=== PATIENT | female | born 1995 | race Caucasian/White ===

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

== ENCOUNTER 2018-11-27 09:09 | Emergency (ER) | payer SELFPAY ==
[2018-11-27 09:13] VITALS: BP 100/61; PULSE 84; TEMP 98.8; BMI 24.7
[2018-11-27] MEDS ORDERED: SODIUM CHLORIDE 1,000 ML IV STA (09:22)
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
[2018-11-27 09:49] LABS: BASO % 0.4 % (0-2.0); EOS % 1.2 % (0-4.5); HEMATOCRIT 40.3 % (32.4-45.2); HEMOGLOBIN 13.2 GM/dL (10.7-15.3); LYMPH % 19.2 % (8-40); MCH 28.8 pg (25.7-33.7); MCHC 32.7 g/dl (32.0-36.0); MEAN PLT VOLUME 8.8 fl (7.5-11.1); MONO % 7.6 % (3.8-10.2); NEUT % 71.6 % (42.8-82.8); PLATELET COUNT 304 K/MM3 (134-434); RBC 4.58 M/mm3 (3.60-5.2); RDW 15.6 % (11.6-15.6); WHITE BLOOD COUNT 7.7 K/mm3 (4.0-10.0)
[2018-11-27 09:55] LABS: HCG,QUALITATIVE URINE Positive
--- NOTE | 2018-11-27 09:59 | PDOC ---
*Physical Exam - Vital Signs Last Vital Signs Temp Pulse Resp BP Pulse Ox 98.8 F 84 18 100/61 98 11/27/18 09:09 11/27/18 09:09 11/27/18 09:09 11/27/18 09:09 11/27/18 09:09 ED Treatment Course - LABORATORY CBC & Chemistry Diagram: 11/27/18 09:35 11/27/18 09:35 - ADDITIONAL ORDERS Additional order review: Laboratory Results 11/27/18 09:35 Urine HCG, Qual Positive 11/27/18 09:35 RBC 4.58 MCV 88.0 MCHC 32.7 RDW 15.6 D MPV 8.8 Neutrophils % 71.6 Lymphocytes % 19.2 Monocytes % 7.6 Eosinophils % 1.2 Basophils % 0.4 Medical Decision Making - Medical Decision Making 11/27/18 09:59 Pt seen by Midlevel Provider under my direct supervision 23 yo F presenting with nausea and vomiting and spotting Pt s/p removal of Depo in April 2018 Menses resumed in July LMP in September Pt has noted vomiting and spotting over the past few days DD: , gastroenteritis, Ancillary studies reviewed I agree with plan as outlined by Midlevel Provider 11/27/18 10:07 Laboratory Tests 11/27/18 11/27/18 09:35 09:35 WBC 7.7 Hgb 13.2 Hct 40.3 Plt Count 304 Urine HCG, Qual Positive 11/27/18 11:09 Laboratory Tests 11/27/18 09:35 Beta HCG, Quant 29537.4 11/27/18 11:13 US- 6 weeks, HR 176 bpm, ovaries with flow bilaterally 11/27/18 12:12 Laboratory Tests 11/27/18 10:56 Blood Type A POSITIVE 11/27/18 12:12 Follow up with usability specialist Clinical impression: threatened AB, initial presentation Abdominal pain in , initial presentation *DC/Admit/Observation/Transfer Diagnosis at time of Disposition: Threatened - Discharge Dispostion Disposition: HOME Condition at time of disposition: Stable - Referrals Referrals: Natalie Cantor MD [Staff Physician] - ON STAFF,NOT [Primary Care Provider] - - Patient Instructions Printed Discharge Instructions: DI for Threatened Additional Instructions: Thank you for choosing [facility]. It was a pleasure taking care of you. You were found to be 6 weeks here Recommend pelvic rest (avoid sexual intercourse as well) Follow-up with RADIOLOGY ORDERLY in 2 days for continued management of your Return to the Emergency Department if your symptoms worsen or persist, you have severe abdominal pain, vomiting, heavy vaginal bleeding or other concerning symptoms. - Post Discharge Activity
[2018-11-27 10:11] LABS: HYALINE CASTS 11 /lpf (0-8); URINE APPEARANCE CLEAR; URINE BILIRUBIN NEGATIVE (NEGATIVE); URINE COLOR YELLOW; URINE GLUCOSE (UA) NEGATIVE (NEGATIVE); URINE KETONE TRACE (NEGATIVE); URINE LEUK ESTERASE TRACE (NEGATIVE); URINE NITRITE NEGATIVE (NEGATIVE); URINE PROTEIN NEGATIVE (NEGATIVE); URINE RBC 1 /hpf (0-4); URINE UROBILINOGEN 0.2 mg/dL (0.2-1.0); URINE WBC 7 /hpf (0-5)
[2018-11-27 10:37] LABS: ALBUMIN 3.9 g/dl (3.4-5.0); BILIRUBIN,TOTAL 0.5 mg/dL (0.2-1); BLOOD UREA NITROGEN 5.9 mg/dL (7-18); CALCIUM 8.7 mg/dL (8.5-10.1); CREATININE 0.5 mg/dL (0.55-1.3); POTASSIUM 5.1 mmol/L (3.5-5.1); TOT PROT 7.7 g/dl (6.4-8.2)
== END 2018-11-27 12:17 | disposition home or self-care (01) ==
LOC: JER 09:09
PROC: 3E0337Z Introduction of Electrolytic and Water Balance Substance into Peripheral Vein, Percutaneous Approach (ICD-10-PCS; principal; 2018-11-27)
DX: O26.891 Other specified pregnancy related conditions, first trimester (principal); O20.0 Threatened abortion; Z3A.01 Less than 8 weeks gestation of pregnancy
CPT/HCPCS: 36415; 76817-TC; 80053; 81003; 84702; 84703; 85025; 86850; 86900; 86901; 99283-25; J7030

== ENCOUNTER 2019-08-09 15:04 | Emergency (ER) | payer OTHER ==
[2019-08-09 15:19] VITALS: BP 107/81; PULSE 88; TEMP 98.3; BMI 27.4
--- NOTE | 2019-08-09 15:39 | PDOC ---
Rapid Medical Evaluation Chief Complaint: Shortness of Breath Time Seen by Provider: 08/09/19 15:36 Medical Evaluation: Allergies Allergy/AdvReac Type Severity Reaction Status Date / Time No Known Drug Allergies Allergy Verified 11/27/18 09:10 MUSHROOMS Allergy Swelling Uncoded 11/27/18 09:10 Vital Signs Temp Pulse Resp BP Pulse Ox 98.3 F 88 19 107/81 100 08/09/19 15:15 08/09/19 15:15 08/09/19 15:15 08/09/19 15:15 08/09/19 15:15 08/09/19 15:36 Pt c/o: increasing sob, recent dx of anemia, started iron last week but no improvement, heavy vag bleeding Pt on brief exam: vss, conjunctiva mildly pale Pt ordered for: none Pt to proceed to the ED 08/09/19 15:37 Discharge Disposition - Diagnosis Fatigue - Referrals - Patient Instructions - Post Discharge Activity
--- NOTE | 2019-08-09 16:34 | PDOC ---
History of Present Illness - General History Source: Patient Exam Limitations: Clinical Condition - History of Present Illness Initial Comments: 08/09/19 16:32 Patient with no significant past medical history present with complaint of 2 weeks history of midsternal chest pain, shortness of breath with deep breathing and intermittent chest tightness. Patient reported going to urgent care a week ago for symptoms and blood work done including CBC shows mild anemia but thyroid lab and chemistry was normal. Patient reported history of heavy menstrual pe riod soaking 4 pads a day with last menstrual period lasting a week now. Patient reported last menstrual period last month of the and started bleeding again a week ago which is now still having menstrual period. Denies nausea, vomiting, dizziness, fever, chills, numbness or tingling sensation. Denies any other symptoms. Patient did not take anything for symptoms Is this a multiple visit Asthma Patient?: No Timing/Duration: other (2 weeks) <Kelvin Rutherford - Last Filed: 08/09/19 18:06> <Neeta De La Paz - Last Filed: 08/14/19 05:18> - General Chief Complaint: Shortness of Breath Stated Complaint: CHEST TIGHTNESS/SOB Time Seen by Provider: 08/09/19 15:36 Past History - Past Medical History Asthma: No COPD: No Diabetes: No HTN: No - Reproductive History (#): 1 Para: 0 - Immunization History Immunization Up to Date: Yes - Psycho Social/Smoking Cessation Hx Smoking Status: No Smoking History: Never smoked Have you smoked in the past 12 months: No Number of Cigarettes Smoked Daily: 0 Hx Alcohol Use: No Drug/Substance Use Hx: No Substance Use Type: None <Kelvin Rutherford - Last Filed: 08/09/19 18:06> <Neeta De La Paz - Last Filed: 08/14/19 05:18> - Past Medical History Allergies/Adverse Reactions: Allergies Allergy/AdvReac Type Severity Reaction Status Date / Time No Known Drug Allergies Allergy Verified 08/11/19 22:37 MUSHROOMS Allergy Swelling Uncoded 08/11/19 22:37 Home Medications: Ambulatory Orders Albuterol Sulfate Inhaler - [Ventolin Hfa Inhaler -] 2 inh PO Q6H PRN #1 inh 08/09/19 Naproxen 500 mg PO BID PRN #20 tablet 08/09/19 Review of Systems - Review of Systems Able to Perform ROS?: Yes Is the patient limited [place] proficient: No Constitutional: No: Chills, Fever, Malaise HEENTM: No: Symptoms Reported, See HPI, Eye Pain, Blurred Vision, Tearing, Recent change in vision, Double Vision, Cataracts, Ear Pain, Ocular Prothesis, Ear Discharge, Nose Pain, Nose Congestion, Tinnitus, Nose Bleeding, Hearing Loss, Throat Pain, Throat Swelling, Mouth Pain, Dental Problems, Difficulty Swal lowing, Mouth Swelling, Other Respiratory: Yes: Symptoms reported, See HPI, Shortness of Breath. No: Cough, Orthopnea, SOB with Exertion, SOB at Rest, Stridor, Wheezing, Productive cough, Hemoptysis, Other Cardiac (ROS): Yes: Symptoms Reported, See HPI, Chest Tightness (mid-sternum chest discomfort). No: Chest Pain, Edema, Irregular Heart Rate, L ightheadedness, Palpitations, Syncope, Other ABD/GI: No: Symptoms Reported, See HPI, Constipated, Diarrhea, Nausea, Poor Appetite, Poor Fluid Intake, Vomiting, Indigestion, Abdominal cramping : No: Symptoms Reported, Frequency, Hematuria All Other Systems: Reviewed and Negative <Kelvin Rutherford - Last Filed: 08/09/19 18:06> *Physical Exam - Vital Signs Last Vital Signs Temp Pulse Resp BP Pulse Ox 98.3 F 88 19 107/81 100 08/09/19 15:15 08/09/19 15:15 08/09/19 15:15 08/09/19 15:15 08/09/19 15:15 - Physical Exam 08/09/19 16:40 GENERAL: Well developed, well nourished. Awake and alert. No acute distress. HEENT: Normocephalic, atraumatic. PERRLA, EOMI. No conjunctival pallor. Sclera are non-icteric. Moist mucous membranes. Oropharynx is clear. NECK: Supple. Full ROM. CARDIOVASCULAR: Mild reproducible midsternal chest discomfort. Regular rate and rhythm. No murmurs, rubs, or gallops. Distal pulses are 2+ and symmetric. PULMONARY: No evidence of respiratory distress. Lungs clear to auscultation bilaterally. No wheezing, rales or rhonchi. ABDOMINAL: Soft. Non-tender. Non-distended. No rebound or guarding. No organomegaly. Normoactive bowel sounds. MUSCULOSKELETAL Normal range of motion at all joints. SKIN: Warm and dry. Normal capillary refill. No rashes. No cyanosis. NEUROLOGICAL: Alert, awake, appropriate. Gait is normal without ataxia. PSYCHIATRIC: Cooperative. Good eye contact. Appropriate mood General Appearance: Yes: Nourished, Appropriately Dressed. No: Apparent Distress <Kelvin Rutherford - Last Filed: 08/09/19 18:06> - Vital Signs Last Vital Signs Temp Pulse Resp BP Pulse Ox 98.3 F 88 19 107/81 100 08/09/19 15:15 08/09/19 15:15 08/09/19 15:15 08/09/19 15:15 08/09/19 15:15 <Neeta De La Paz - Last Filed: 08/14/19 05:18> ED Treatment Course - LABORATORY CBC & Chemistry Diagram: 08/09/19 16:38 08/09/19 16:38 - RADIOLOGY Radiology Studies Ordered: Category Date Time Status CHEST PA & LAT [RAD] Stat Radiology 08/09/19 16:26 Ordered <Kelvin Rutherford - Last Filed: 08/09/19 18:06> - LABORATORY CBC & Chemistry Diagram: 08/09/19 16:38 08/09/19 16:38 - ADDITIONAL ORDERS Additional order review: 08/09/19 16:38 RBC 4.62 MCV 81.8 MCHC 31.9 L RDW 18.2 H MPV 9.1 Neutrophils % 65.4 Lymphocytes % 22.4 Monocytes % 10.2 Eosinophils % 1.2 Basophils % 0.8 - Medications Given in the ED: ED Medications Discontinued Medications Generic Name Dose Route Start Last Admin Trade Name Freq PRN Reason Stop Dose Admin Acetaminophen 650 mg 08/09/19 16:38 08/09/19 16:41 Tylenol - PO 08/09/19 16:39 650 mg ONCE ONE Administration <Neeta De La Paz - Last Filed: 08/14/19 05:18> Medical Decision Making - Medical Decision Making 08/09/19 16:39 Patient with no significant past medical history present with complaint of 2 weeks history of midsternal chest pain, shortness of breath with deep breathing and intermittent chest tightness. Patient reported going to urgent care a week ago for symptoms and blood work done including CBC shows mild anemia but thyroid lab and chemistry was normal. Patient reported history of heavy menstrual period soaking 4 pads a day with last menstrual period lasting a week now. Patient reported last menstrual period last month of the and started bleeding again a week ago which is now still having menstrual period. Denies nausea, vomiting, dizziness, fever, chills, numbness or tingling sensation. Denies any other symptoms. Patient did not take anything for symptoms 08/09/19 16:41 Exam significant for mild reproducible midsternal chest discomfort otherwise unremarkable exam. Normal cardio exam and lungs clear to auscultation b ilateral. Patient in no acute distress. Patient symptoms likely costochondritis versus less likely cardiogenic pain. CBC, CMP and cardiac profile lab ordered. Chest x-ray ordered to rule out chest abnormality. Tylenol 600 mg p.o. ordered for pain. Treat based on lab and imaging results 08/09/19 17:52 CBC and chemistry lab unremarkable. Chest x-ray shows no acute abnormality. Patient asymptomatic now. Patient symptoms likely costochondritis. Patient stable for discharge on naproxen as needed for costochondritis and Ventolin inhaler as needed for bronchospasm with PCP follow-up. Patient has PCP appointment tomorrow <Kelvin Rutherford - Last Filed: 08/09/19 18:06> - Medical Decision Making I reviewed the case with the mid-level practitioner and agree with the mid-level practitioner's assessment, diagnosis and disposition. <Neeta De La Paz - Last Filed: 08/14/19 05:18> Discharge - Discharge Information Problems reviewed: Yes - Admission No <Kelvin Rutherford - Last Filed: 08/09/19 18:06> <Neeta De La Paz - Last Filed: 08/14/19 05:18> - Discharge Information Clinical Impression/Diagnosis: Costochondritis, acute, Bronchospasm, acute Condition: Stable Disposition: HOME - Additional Discharge Information Prescriptions: Naproxen 500 mg PO BID PRN #20 tablet PRN Reason: chest pain Albuterol Sulfate Inhaler - [Ventolin Hfa Inhaler -] 2 inh PO Q6H PRN #1 inh PRN Reason: chest tightness - Follow up/Referral Referrals: Cathy Rojo MD [Primary Care Provider] - - Patient Discharge Instructions Patient Printed Discharge Instructions: DI for Costochondritis Additional Instructions: Your blood work and chest x-ray was normal. symptoms likely caused by chest wall discomfort and chest tightness. Take prescribed medication as prescribed for pain and chest tightness. Follow-up with your primary care as scheduled tomorrow - Post Discharge Activity Work/Back to School Note: Back to Work
[2019-08-09] MEDS ORDERED: ACETAMINOPHEN 325 MG TABLET (FP) PO ONE (16:38)
[2019-08-09] MEDS ORDERED: ACETAMINOPHEN 325 MG TABLET (FP) ONE (16:39)
[2019-08-09 17:24] LABS: BASO % 0.8 % (0-2.0); EOS % 1.2 % (0-4.5); HEMATOCRIT 37.8 % (32.4-45.2); HEMOGLOBIN 12.1 GM/dL (10.7-15.3); LYMPH % 22.4 % (8-40); MCH 26.1 pg (25.7-33.7); MCHC 31.9 g/dl (32.0-36.0); MEAN CELL VOLUME 81.8 fl (80-96); MEAN PLT VOLUME 9.1 fl (7.5-11.1); MONO % 10.2 % (3.8-10.2); NEUT % 65.4 % (42.8-82.8); PLATELET COUNT 426 K/MM3 (134-434); RBC 4.62 M/mm3 (3.60-5.2); RDW 18.2 % (11.6-15.6); WHITE BLOOD COUNT 7.1 K/mm3 (4.0-10.0)
[2019-08-09 17:59] LABS: ALK PHOS 91 U/L (45-117); ANION GAP 6 MMOL/L (8-16); BILIRUBIN,TOTAL 0.2 mg/dL (0.2-1); BLOOD UREA NITROGEN 6.3 mg/dL (7-18); CALCIUM 8.9 mg/dL (8.5-10.1); CHLORIDE 107 mmol/L (98-107); CO2 24 mmol/L (21-32); CREATININE 0.5 mg/dL (0.55-1.3); GLUCOSE,RANDOM 71 mg/dL (74-106); POTASSIUM 4.1 mmol/L (3.5-5.1); SGOT/AST 17 U/L (15-37); SGPT/ALT 23 U/L (13-61); SODIUM 137 mmol/L (136-145); TOT PROT 7.7 g/dl (6.4-8.2)
== END 2019-08-09 17:57 | disposition home or self-care (01) ==
LOC: JER 15:04
DX: M94.0 Chondrocostal junction syndrome [Tietze] (principal); J98.01 Acute bronchospasm; Z91.018 Allergy to other foods
CPT/HCPCS: 36415; 71046-TC-FY; 80053; 82550; 84484; 84703; 85025; 99284-25

== ENCOUNTER 2020-02-10 13:31 | Emergency (ER) | payer OTHER ==
[2020-02-10 13:44] VITALS: BMI 27.4
[2020-02-10] MEDS ORDERED: FAMOTIDINE 20 MG/50 ML IVPB 20 MG/50 ML MG IVPB ONE (14:10)
[2020-02-10] MEDS ORDERED: SODIUM CHLORIDE 1,000 ML IV STA (14:10)
[2020-02-10 14:30] LABS: BASO % 0.8 % (0-2.0); EOS % 1.2 % (0-4.5); HEMATOCRIT 34.5 % (32.4-45.2); HEMOGLOBIN 10.7 GM/dL (10.7-15.3); LYMPH % 24.2 % (8-40); MCH 23.3 pg (25.7-33.7); MEAN PLT VOLUME 8.5 fl (7.5-11.1); MONO % 9.7 % (3.8-10.2); NEUT % 64.1 % (42.8-82.8); PLATELET COUNT 389 K/MM3 (134-434); RDW 19.7 % (11.6-15.6); WHITE BLOOD COUNT 7.3 K/mm3 (4.0-10.0)
--- NOTE | 2020-02-10 14:31 | PDOC ---
History of Present Illness - General Chief Complaint: Pain Stated Complaint: ABD PAIN Time Seen by Provider: 02/10/20 14:10 History Source: Patient Exam Limitations: Clinical Condition - History of Present Illness Initial Comments: 02/10/20 14:32 Patient with no significant past medical history present with complaint of 3 weeks history of abdominal pain, loose stool, foul-smelling urine, dysuria and urinary frequency. Patient reported going to urgent care 2 days ago for symp toms and was advised to come to the ER due to having epigastric and right lower quadrant pain to rule out appendicitis. Denies vaginal bleeding, vaginal discharge, nausea, vomiting, cough, shortness of breath, chest pains, dizziness or weakness. LMP 6 days ago. Denies any other symptoms Is this a multiple visit Asthma Patient?: No Past History - Medical History Allergies/Adverse Reactions: Allergies Allergy/AdvReac Type Severity Reaction Status Date / Time No Known Drug Allergies Allergy Verified 02/10/20 13:44 MUSHROOMS Allergy Swelling Uncoded 02/10/20 13:44 Home Medications: Ambulatory Orders Albuterol Sulfate Inhaler - [Ventolin Hfa Inhaler -] 2 inh PO Q6H PRN #1 inh 08/09/19 Naproxen 500 mg PO BID PRN #20 tablet 08/09/19 Famotidine [Pepcid -] 40 mg PO DAILY #7 tablet 02/10/20 Mag Hydrox/Aluminum Hyd/Simeth [Maalox Advanced Suspension] 30 ml PO Q8H PRN #200 ml 02/10/20 Anemia: Yes Asthma: No COPD: No Diabetes: No HTN: No - Reproductive History Is Patient Now?: No (#): 1 Para: 0 - Immunization History Immunization Up to Date: Yes - Psycho-Social/Smoking History Smoking Status: No Smoking History: Never smoked Have you smoked in the past 12 months: No Number of Cigarettes Smoked Daily: 0 Review of Systems - Review of Systems Able to Perform ROS?: Yes Is the patient limited [place] proficient: No Constitutional: No: Chills, Fever, Malaise HEENTM: No: Symptoms Reported, See HPI, Eye Pain, Blurred Vision, Tearing, Recent change in vision, Double Vision, Cataracts, Ear Pain, Ocular Prothesis, Ear Discharge, Nose Pain, Nose Congestion, Tinnitus, Nose Bleeding, Hearing Loss, Throat Pain, Throat Swelling, Mouth Pain, Dental Problems, Difficulty Swallowing, Mouth Swelling, Other Respiratory: No: Symptoms reported, See HPI, Cough, Orthopnea, Shortness of Breath, SOB with Exertion, SOB at Rest, Stridor, Wheezing, Productive cough, Hemoptysis, Other Cardiac (ROS): No: Symptoms Reported, See HPI, Chest Pain, Edema, Irregular Heart Rate, Lightheadedness, Palpitations, Syncope, Chest Tightness, Other ABD/GI: Yes: Symptoms Reported, See HPI, Diarrhea, Abdominal cramping. No: Abdominal Distended, Blood Streaked Bowels, Constipated, Difficulty Swallowing, Nausea, Poor Appetite, Poor Fluid Intake, Rectal Bleeding, Vomiting, Indigestion : Yes: Symptoms Reported, See HPI, Dysuria, Urgency. No: Burning, Discharge, Frequency, Flank Pain, Hematuria, Incontinence, Pain, Lesions Musculoskeletal: No: Symptoms Reported Integumentary: No: Symptoms Reported Neurological: No: Symptoms reported, Headache, Weakness, Dizziness All Other Systems: Reviewed and Negative *Physical Exam - Vital Signs Last Vital Signs Temp Pulse Resp BP Pulse Ox 98.2 F 89 18 100/64 100 02/10/20 13:42 02/10/20 13:42 02/10/20 13:42 02/10/20 13:42 02/10/20 13:42 - Physical Exam 02/10/20 14:35 GENERAL: Well developed, well nourished. Awake and alert. No acute distress. HEENT: Normocephalic, atraumatic. PERRLA, EOMI. No conjunctival pallor. Sclera are non-icteric. Moist mucous membranes. Oropharynx is clear. NECK: Supple. Full ROM. CARDIOVASCULAR: Regular rate and rhythm. No murmurs, rubs, or gallops. PULMONARY: No evidence of respiratory distress. Lungs clear to auscultation bilaterally. No wheezing, rales or rhonchi. ABDOMINAL: Soft. Mild epigastric tenderness with subjective right lower abdominal tenderness. Non-distended. No rebound or guarding. No organomegaly. Normoactive bowel sounds. MUSCULOSKELETAL Normal range of motion at all joints. SKIN: Warm and dry. Normal capillary refill. No rashes. No jaundice. No cyanosis NEUROLOGICAL: Alert, awake, appropriate. Gait is normal without ataxia. PSYCHIATRIC: Cooperative. Good eye contact. Appropriate mood General Appearance: Yes: Nourished, Appropriately Dressed. No: Apparent Distress ED Treatment Course - LABORATORY CBC & Chemistry Diagram: 02/10/20 14:19 02/10/20 14:19 Medical Decision Making - Medical Decision Making 02/10/20 14:34 Patient with no significant past medical history present with complaint of 3 weeks history of abdominal pain, loose stool, foul-smelling urine, dysuria and urinary frequency. Patient reported going to urgent care 2 days ago for symptoms and was advised to come to the ER due to having epigastric and right lower quadrant pain to rule out appendicitis. Denies vaginal bleeding, vaginal discharge, nausea, vomiting, cough, shortness of breath, chest pains, dizziness or weakness. LMP 6 days ago. Denies any other symptoms Exam significant for mild tenderness to epigastric region with no clear tenderness to right lower quadrant even though patient reported mild pain to right lower pelvic area. No guarding or rebound. Lungs clear to auscultation bilateral and normal cardio exam. Patient in no acute distress. Patient symptoms likely cystitis versus gastroenteritis versus less likely appendicitis. CBC/CMP and lipase lab ordered. UA, urine hCG urine test ordered. Will consider abdominal CT based on lab results. IV hydration with 1 L normal saline ordered and Pepcid 20 mg IV ordered 02/10/20 17:43 CBC and chemistry lab unremarkable. UA normal. Urine hCG negative. Abdominal and pelvic CT with IV contrast shows no acute abnormality. Patient asymptomatic at this time. Patient stable for discharge on Maalox PRN for abdominal pain and Pepcid with GI follow-up as symptoms likely from viral gastroenteritis. Plan di scussed with patient patient agrees with treatment plan Discharge - Discharge Information Problems reviewed: Yes Clinical Impression/Diagnosis: Dysuria, Acute gastroenteritis Abdominal pain Qualifiers: Abdominal location: epigastric Qualified Code(s): R10.13 - Epigastric pain Condition: Stable Disposition: HOME - Admission No - Additional Discharge Information Prescriptions: Mag Hydrox/Aluminum Hyd/Simeth [Maalox Advanced Suspension] 30 ml PO Q8H PRN #200 ml PRN Reason: abdominal discomfort Famotidine [Pepcid -] 40 mg PO DAILY #7 tablet - Follow up/Referral Referrals: Chi Schaffer DO [Staff Physician] - - Patient Discharge Instructions Patient Printed Discharge Instructions: DI for Abdominal Pain-Adult Additional Instructions: Your blood work is normal. Your abdominal CAT scan is normal as well. Your urine shows trace bacteria but not enough to diagnose UTI, will wait for urine culture result. Abdominal pain is likely caused by your diarrhea episodes. Take prescribed medication as prescribed as needed for diarrhea. Increase fluid intake. Follow-up with referred GI doctor if symptoms persist for more than 2 days - Post Discharge Activity
[2020-02-10 14:33] LABS: EPI CELLS 19 /uL (0-25.1); HYALINE CASTS 0 /uL (0-3.1); URINE APPEARANCE CLEAR; URINE BACTERIA 740 /uL (0-1359); URINE BILIRUBIN NEGATIVE (NEGATIVE); URINE COLOR YELLOW; URINE GLUCOSE (UA) NEGATIVE (NEGATIVE); URINE KETONE NEGATIVE (NEGATIVE); URINE LEUK ESTERASE TRACE (NEGATIVE); URINE NITRITE NEGATIVE (NEGATIVE); URINE PROTEIN NEGATIVE (NEGATIVE); URINE RBC 13 /uL (0-23.9); URINE UROBILINOGEN 0.2 mg/dL (0.2-1.0); URINE WBC 31 /uL (0-25.8)
[2020-02-10 15:09] LABS: ALBUMIN 3.8 g/dl (3.4-5.0); BILIRUBIN,TOTAL 0.3 mg/dL (0.2-1); BLOOD UREA NITROGEN 7.2 mg/dL (7-18); CALCIUM 8.7 mg/dL (8.5-10.1); CREATININE 0.6 mg/dL (0.55-1.3); POTASSIUM 4.1 mmol/L (3.5-5.1); TOT PROT 7.9 g/dl (6.4-8.2)
[2020-02-10 17:11] VITALS: BP 115/65; PULSE 65; TEMP 98.4
== END 2020-02-10 18:00 | disposition home or self-care (01) ==
LOC: JER 13:31
PROC: 3E033GC Introduction of Other Therapeutic Substance into Peripheral Vein, Percutaneous Approach (ICD-10-PCS; principal; 2020-02-10)
PROC: 3E0337Z Introduction of Electrolytic and Water Balance Substance into Peripheral Vein, Percutaneous Approach (ICD-10-PCS; 2020-02-10)
DX: R10.13 Epigastric pain (principal); R30.0 Dysuria
CPT/HCPCS: 36415; 74177-TC; 80053; 81003; 83690; 84703; 85025; 86850; 86900; 86901; 99285-25; Q9967

== ENCOUNTER 2021-09-12 13:48 | Emergency (ER) | payer OTHER ==
[2021-09-12 14:23] VITALS: BP 130/85; PULSE 89; TEMP 98; BMI 28.3
[2021-09-12 16:02] LABS: BASO % 0.3 % (0-2.0); EOS % 1.1 % (0-4.5); HEMOGLOBIN 13.6 GM/dL (10.7-15.3); LYMPH % 24.4 % (8-40); MCH 26.4 pg (25.7-33.7); MCHC 33.1 g/dl (32.0-36.0); MEAN PLT VOLUME 8.2 fl (7.5-11.1); MONO % 7.8 % (3.8-10.2); NEUT % 66.4 % (42.8-82.8); PLATELET COUNT 330 10^3/uL (134-434); RBC 5.13 M/mm3 (3.60-5.2); RDW 15.5 % (11.6-15.6); WHITE BLOOD COUNT 7.8 K/mm3 (4.0-10.0)
[2021-09-12 16:15] LABS: BLOOD UREA NITROGEN 6.7 mg/dL (7-18); CALCIUM 9.3 mg/dL (8.5-10.1)
[2021-09-12 16:18] LABS: CREATININE 0.4 mg/dL (0.55-1.3)
[2021-09-12 16:20] LABS: BILIRUBIN,TOTAL 0.3 mg/dL (0.2-1); TOT PROT 7.8 g/dl (6.4-8.2)
[2021-09-12 16:51] LABS: HCG,QUALITATIVE URINE Positive
[2021-09-12 16:56] LABS: EPI CELLS >36 /uL (0-25.1); HYALINE CASTS 3 /uL (0-3.1); URINE APPEARANCE CLOUDY; URINE BACTERIA 1662 /uL (0-1359); URINE BILIRUBIN NEGATIVE (NEGATIVE); URINE COLOR DK YELLOW; URINE GLUCOSE (UA) NEGATIVE (NEGATIVE); URINE KETONE NEGATIVE (NEGATIVE); URINE LEUK ESTERASE NEGATIVE (NEGATIVE); URINE NITRITE NEGATIVE (NEGATIVE); URINE PROTEIN NEGATIVE (NEGATIVE)
[2021-09-12 19:16] LABS: URINE RBC 72 /uL (0-23.9); URINE WBC 99 /uL (0-25.8); YEAST NEGATIVE (NEGATIVE)
== END 2021-09-12 19:40 | disposition home or self-care (01) ==
LOC: JER 13:48
DX: O03.9 Complete or unspecified spontaneous abortion without complication (principal); Z3A.00 Weeks of gestation of pregnancy not specified
CPT/HCPCS: 36415; 76817-TC; 80053; 81003; 84702; 84703; 85025; 86850; 86900; 86901; 87086; 99284-25

== ENCOUNTER 2023-10-05 23:12 | Emergency (ER) | payer OTHER ==
[2023-10-05 23:29] VITALS: BP 140/64; PULSE 76; RESP 18; TEMP 97.5; BMI 30.1
[2023-10-05] MEDS: ACETAMINOPHEN 325 MG TABLET (FP) PO ONE (23:42)
== END 2023-10-06 01:10 | disposition home or self-care (01) ==
LOC: JER 23:12
DX: J01.90 Acute sinusitis, unspecified (principal); R51.9 Headache, unspecified; R53.1 Weakness; R09.81 Nasal congestion; H92.01 Otalgia, right ear; Z20.822 Contact with and (suspected) exposure to COVID-19
CPT/HCPCS: 0241U-QW; 99283-25

== ENCOUNTER 2024-01-05 17:08 | Emergency (ER) | payer OTHER ==
[2024-01-05 17:20] VITALS: BP 122/82; PULSE 70; RESP 16; TEMP 98
[2024-01-05 18:40] LABS: BASO % 0.9 % (0-2.0); EOS % 2.8 % (0-4.5); HEMATOCRIT 37.9 % (32.4-45.2); HEMOGLOBIN 12.4 GM/dL (10.7-15.3); MCH 27.5 pg (25.7-33.7); MCHC 32.9 g/dl (32.0-36.0); MEAN CELL VOLUME 83.7 fl (80-96); MONO % 6.8 % (3.8-10.2); NEUT % 64.5 % (42.8-82.8); PLATELET COUNT 443 10^3/uL (134-434); RBC 4.53 M/mm3 (3.60-5.2); RDW 15.8 % (11.6-15.6); WHITE BLOOD COUNT 9.3 K/mm3 (4.0-10.0)
[2024-01-05 18:53] LABS: ALBUMIN 4.3 g/dl (3.4-5.0); CALCIUM 9.4 mg/dL (8.5-10.1)
[2024-01-05 18:54] LABS: BLOOD UREA NITROGEN 4.8 mg/dL (7-18)
[2024-01-05 18:57] LABS: CREATININE 0.6 mg/dL (0.55-1.3)
[2024-01-05 18:58] LABS: BILIRUBIN,TOTAL 0.2 mg/dL (0.2-1); TOT PROT 8.2 g/dl (6.4-8.2)
[2024-01-05] MEDS ORDERED: KETOROLAC TROMETHAMINE 15 MG/ML VIAL ONE (19:46)
[2024-01-05] MEDS: KETOROLAC TROMETHAMINE 30 MG/1 ML VIAL IVPUSH ONE (19:50)
== END 2024-01-05 20:23 | disposition home or self-care (01) ==
LOC: JER 17:08
PROC: 3E0333Z Introduction of Anti-inflammatory into Peripheral Vein, Percutaneous Approach (ICD-10-PCS; principal; 2024-01-05)
DX: R07.2 Precordial pain (principal); R06.02 Shortness of breath; Z20.822 Contact with and (suspected) exposure to COVID-19
CPT/HCPCS: 36415; 80053; 84484; 85025; 85379; 87635; 93005; 93010; 99284-25

== ENCOUNTER 2024-01-09 17:24 | Emergency (ER) | payer OTHER ==
[2024-01-09 17:36] VITALS: BP 130/68; PULSE 97; RESP 18; TEMP 98.7; BMI 30.9
[2024-01-09 19:02] LABS: BASO % 0.7 % (0-2.0); EOS % 1.5 % (0-4.5); HEMATOCRIT 35.8 % (32.4-45.2); HEMOGLOBIN 11.6 GM/dL (10.7-15.3); LYMPH % 16.1 % (8-40); MCH 27.1 pg (25.7-33.7); MCHC 32.5 g/dl (32.0-36.0); MEAN CELL VOLUME 83.5 fl (80-96); MEAN PLT VOLUME 8.1 fl (7.5-11.1); MONO % 8.2 % (3.8-10.2); NEUT % 73.5 % (42.8-82.8); PLATELET COUNT 440 10^3/uL (134-434); RBC 4.29 M/mm3 (3.60-5.2); RDW 15.8 % (11.6-15.6); WHITE BLOOD COUNT 9.2 K/mm3 (4.0-10.0)
[2024-01-09 19:28] LABS: MAGNESIUM 2.2 mg/dL (1.8-2.4)
[2024-01-09 19:31] LABS: POTASSIUM 4.2 mmol/L (3.5-5.1)
[2024-01-09 19:33] LABS: BLOOD UREA NITROGEN 6.4 mg/dL (7-18); CALCIUM 9.2 mg/dL (8.5-10.1)
[2024-01-09 19:36] LABS: CREATININE 0.6 mg/dL (0.55-1.3)
[2024-01-09 19:38] LABS: BILIRUBIN,TOTAL 0.2 mg/dL (0.2-1); TOT PROT 7.9 g/dl (6.4-8.2)
== END 2024-01-09 23:02 | disposition home or self-care (01) ==
LOC: JER 17:24
DX: R00.2 Palpitations (principal); R42 Dizziness and giddiness; R07.89 Other chest pain; H53.8 Other visual disturbances
CPT/HCPCS: 36415; 71045-TC-FY; 71275-TC; 80053; 83690; 83735; 84443; 84484; 84702; 85025; 85379; 93005; 93010; 99285-25; Q9967

== ENCOUNTER 2024-07-19 22:40 | Emergency (ER) | payer OTHER ==
[2024-07-19 22:53] VITALS: BP 122/78; PULSE 105; RESP 20; TEMP 98.6; BMI 29.2
[2024-07-19] MEDS ORDERED: ACETAMINOPHEN INJECTION 100 ML ONE (23:34)
[2024-07-19] MEDS: ACETAMINOPHEN 1000 MG/100 ML BAG IVPB ONE (23:41)
[2024-07-19] MEDS: LACTATED RINGERS SOLUTION 1000 ML INFUS.BAG IV ONE (23:41)
[2024-07-19 23:45] LABS: BASO % 0.7 % (0-2.0); EOS % 3.5 % (0-4.5); HEMATOCRIT 34.4 % (32.4-45.2); HEMOGLOBIN 10.9 GM/dL (10.7-15.3); LYMPH % 28.1 % (8-40); MCH 24.5 pg (25.7-33.7); MCHC 31.8 g/dl (32.0-36.0); MEAN CELL VOLUME 77.1 fl (80-96); MEAN PLT VOLUME 8.1 fl (7.5-11.1); MONO % 8.4 % (3.8-10.2); NEUT % 59.3 % (42.8-82.8); PLATELET COUNT 375 10^3/uL (134-434); RBC 4.46 M/mm3 (3.60-5.2); RDW 18.6 % (11.6-15.6); WHITE BLOOD COUNT 8.7 K/mm3 (4.0-10.0)
[2024-07-20 01:48] LABS: CHLORIDE 105 mmol/L (98-107); SODIUM 127 mmol/L (136-145)
[2024-07-20 01:52] LABS: ALBUMIN 3.4 g/dl (3.4-5.0); CALCIUM 8.6 mg/dL (8.5-10.1)
[2024-07-20 01:53] LABS: BLOOD UREA NITROGEN 10.3 mg/dL (7-18); CO2 24 mmol/L (21-32); MAGNESIUM 2.1 mg/dL (1.8-2.4)
[2024-07-20 01:54] LABS: GLUCOSE,RANDOM 97 mg/dL (74-106)
[2024-07-20 01:56] LABS: CREATININE 0.7 mg/dL (0.55-1.3)
[2024-07-20 01:59] LABS: ALK PHOS 77 U/L (45-117)
[2024-07-20 03:03] LABS: ANION GAP -2 mmol/L (4-13); POTASSIUM > 10.0 mmol/L (3.5-5.1); SGOT/AST 135 U/L (15-37); SGPT/ALT 32 U/L (13-61); TOT PROT 8.3 g/dl (6.4-8.2)
== END 2024-07-20 01:50 | disposition home or self-care (01) ==
LOC: JER 22:40
PROC: 3E033NZ Introduction of Analgesics, Hypnotics, Sedatives into Peripheral Vein, Percutaneous Approach (ICD-10-PCS; principal; 2024-07-19)
DX: R00.2 Palpitations (principal); R42 Dizziness and giddiness; R51.9 Headache, unspecified; R07.89 Other chest pain; R25.3 Fasciculation
CPT/HCPCS: 36415; 71045-TC-FY; 80053; 83735; 84443; 84484; 84703; 85025; 93005; 93010; 96374; 99285-25; J0131

== ENCOUNTER 2024-07-20 18:02 | Emergency (ER) | payer OTHER ==
[2024-07-20 18:08] VITALS: BP 119/66; PULSE 83; RESP 20; TEMP 98.3; BMI 29.2
[2024-07-20 19:04] LABS: BASO % 0.9 % (0-2.0); EOS % 2.7 % (0-4.5); HEMATOCRIT 34.1 % (32.4-45.2); HEMOGLOBIN 10.5 GM/dL (10.7-15.3); LYMPH % 28.8 % (8-40); MCH 24.2 pg (25.7-33.7); MCHC 30.9 g/dl (32.0-36.0); MEAN CELL VOLUME 78.4 fl (80-96); MONO % 7.9 % (3.8-10.2); NEUT % 59.7 % (42.8-82.8); PLATELET COUNT 348 10^3/uL (134-434); RBC 4.35 M/mm3 (3.60-5.2); RDW 18.8 % (11.6-15.6); WHITE BLOOD COUNT 7.7 K/mm3 (4.0-10.0)
[2024-07-20 19:28] LABS: POTASSIUM 4.1 mmol/L (3.5-5.1)
[2024-07-20 19:29] LABS: BLOOD UREA NITROGEN 12.4 mg/dL (7-18); CALCIUM 8.8 mg/dL (8.5-10.1)
[2024-07-20 19:33] LABS: CREATININE 0.5 mg/dL (0.55-1.3)
[2024-07-20] MEDS ORDERED: ACETAMINOPHEN INJECTION 0 ML ONE (20:01)
[2024-07-20] MEDS ORDERED: KETOROLAC TROMETHAMINE 30 MG/1 ML VIAL ONE (20:01)
[2024-07-20] MEDS: SODIUM CHLORIDE 0.9% 500 ML INFUS.BAG IV ONE (20:13)
[2024-07-20] MEDS: ACETAMINOPHEN 1000 MG/100 ML BAG IVPB ONE (20:14)
[2024-07-20] MEDS: KETOROLAC TROMETHAMINE 30 MG/1 ML VIAL IVPUSH ONE (20:14)
[2024-07-20] MEDS: LIDOCAINE 4% PATCH TP ONE (20:15)
== END 2024-07-20 21:55 | disposition home or self-care (01) ==
LOC: JER 18:02
DX: R51.9 Headache, unspecified (principal)
CPT/HCPCS: 36415; 70450-TC; 80048; 85025; 93005; 93010; 99285-25